=== PATIENT | female | born 1945 | race African-American/Black ===

== ENCOUNTER → 2016-10-15 16:18 | Outpatient (CLI) | payer MEDICARE ==
[2013-11-10 08:33] VITALS: BMI 26.9
[~2016-10-15 16:18] MED LIST: AVAPRO150 MG PO; FER-IN-SOL DROP50 ML; LEVOXYL88 MC1; LYRICA75 MG PO; NORVASC10 MG PO; PAMELOR75 MG PO; ROCALTROL0.25 MCG PO
== END | disposition home or self-care (01) ==
LOC: D.RAD 16:18
DX: K57.30 Diverticulosis of large intestine without perforation or abscess without bleeding (principal); R15.9 Full incontinence of feces; K59.09 Other constipation; K58.9 Irritable bowel syndrome, unspecified; K92.1 Melena; D50.9 Iron deficiency anemia, unspecified